=== PATIENT | female | born 1965 | race Caucasian/White ===

== ENCOUNTER 2017-10-18 10:25 | Emergency (ER) | payer OTHER ==
[~2017-10-18] VITALS: Ht 165.1 cm; Wt 80.0 kg
[2017-10-18] MEDS ORDERED: HYDR25TA PO (10:34)
[2017-10-18] MEDS ORDERED: LISI-604 PO (10:34)
[2017-10-18] MEDS ORDERED: ACETAMINOPHEN WITH CODEINE 300/30MG TABLET PO ONE (12:30)
[2017-10-18 12:32] VITALS: BP 189/95
== END 2017-10-18 12:44 | disposition home or self-care (01) ==
LOC: ER 11:28
DX: S09.90XA Unspecified injury of head, initial encounter (principal); I10 Essential (primary) hypertension; W19.XXXA Unspecified fall, initial encounter; Y93.89 Activity, other specified; Y92.89 Other specified places as the place of occurrence of the external cause; Y99.8 Other external cause status
CPT/HCPCS: 70450; 99284; Z7610

== ENCOUNTER 2017-11-23 08:24 | Emergency (ER) | payer OTHER ==
[~2017-11-23] VITALS: Ht 162.6 cm; Wt 82.0 kg
[~2017-11-23 08:24] MED LIST: HYDR25TA PO; LISI-604 PO
[2017-11-23] MEDS ORDERED: METHYLPREDNISOLONE SOD SUCC 125 MG/2 ML VIAL IM STA (09:28)
[2017-11-23] MEDS ORDERED: ACETAMINOPHEN 500MG TABLET PO ONE (09:30)
[2017-11-23] MEDS ORDERED: PENICILLIN G BENZATHINE 1,200,000 UNITS/2ML SYR IM ONE (09:45)
[2017-11-23 10:13] VITALS: BP 182/87
== END 2017-11-23 10:19 | disposition home or self-care (01) ==
LOC: ER 08:24
DX: J03.90 Acute tonsillitis, unspecified (principal); I10 Essential (primary) hypertension; E78.00 Pure hypercholesterolemia, unspecified; Z98.51 Tubal ligation status
CPT/HCPCS: 96372; 99284; J0561; J2930

== ENCOUNTER 2018-10-30 19:42 | Emergency (ER) | payer OTHER ==
[~2018-10-30] VITALS: Ht 162.6 cm; Wt 80.0 kg
[2018-10-30] MEDS ORDERED: IBUPROFEN 600MG TABLET PO STA (22:46)
[2018-10-30] MEDS ORDERED: CLONIDINE 0.1MG TABLET PO ONE (23:15)
[2018-10-30 23:48] VITALS: BP 184/104
== END 2018-10-30 23:49 | disposition home or self-care (01) ==
LOC: ER 19:42
DX: M67.471 Ganglion, right ankle and foot (principal); I10 Essential (primary) hypertension; R51 Headache; E78.00 Pure hypercholesterolemia, unspecified; Z98.51 Tubal ligation status
CPT/HCPCS: 99283

== ENCOUNTER 2020-05-03 14:15 | Emergency (ER) | payer OTHER ==
[~2020-05-03] VITALS: Ht 165.1 cm; Wt 85.0 kg
[2020-05-03 16:34] LABS: BASOPHILS % 1.1 % (0.0-2.0); EOSINOPHILS % 1.5 % (0.0-5.0); HEMATOCRIT. 36.5 % (36.0-48.0); HEMOGLOBIN. 11.8 g/dL (12.0-16.0); LYMPHOCYTES % 49.4 % (20.0-50.0); MEAN CORPUSCULAR HEMOGLOBIN 23.6 pg (28.0-32.0); MEAN CORPUSCULAR VOLUME 72.8 fL (81.0-99.0); MEAN PLATELET VOLUME 7.5 fl (7.4-10.4); MONOCYTES % 8.2 % (2.0-8.0); NEUTROPHILS % 39.8 % (40.0-76.0); PLATELET 239 x1000/uL (130-400); RED BLOOD CELL COUNT 5.02 mill/uL (4.2-5.4); RED CELL DISTRIBUTION WIDTH 15.1 % (11.6-14.6)
[2020-05-03 16:38] LABS: CHLORIDE 105 mEq/L (98-107)
[2020-05-03] MEDS ORDERED: POTASSIUM CHLORIDE 20MEQ TABLET SR PO ONE (19:15)
[2020-05-03 19:29] VITALS: BP 164/74
== END 2020-05-03 19:31 | disposition home or self-care (01) ==
LOC: ER 14:15
DX: R07.89 Other chest pain (principal); E78.00 Pure hypercholesterolemia, unspecified; I10 Essential (primary) hypertension; Z98.51 Tubal ligation status
CPT/HCPCS: 36415; 71045; 80053; 83880; 84484; 85025; 93005; 99285